=== PATIENT | male | born 1955 | race Caucasian/White ===

== ENCOUNTER 2023-12-14 10:58 | Outpatient (CLI) | payer MEDICARE, SELFPAY | END 2023-12-14 10:59 | disposition home or self-care (01) | PROVIDERS: PCP Surgery; Visit Provider Orthopaedic Surgery Sports Medicine | DX: Z01.83 Encounter for blood typing (principal) | CPT/HCPCS: 36415; 86850; 86900; 86901 ==

== ENCOUNTER 2023-12-16 05:59 | Day surgery (SDC) | payer MEDICARE, SELFPAY ==
[2023-12-16] VITALS (31 sets, daily range): BP systolic 103–178; BP diastolic 51–124; PULSE 48–90; RESP 12–16; TEMP 36.1–37.3; O2SAT 93–99; BMI 35.3
[2023-12-16] MEDS: LACTATED RINGERS 1000 ML 1,000 ML 100 ML IV ×2 (05:55→08:16)
[2023-12-16] MEDS: ACETAMINOPHEN 500 MG TABLET 1000 MG PO (06:45)
[2023-12-16] MEDS: OXYCODONE (CR) 10 MG TAB.ER.12H PO (06:45)
[2023-12-16] MEDS: MIDAZOLAM HCL 1 MG/ML inj IVP (07:01)
[2023-12-16] MEDS: fentaNYL 100 MCG/2 ML inj IVP (07:01)
[2023-12-16] MEDS: SODIUM CHLORIDE 0.9 % (FLUSH) 10 ML SYRINGE IVF (07:08)
--- NOTE | 2023-12-16 07:12 | SUR.PREOP ---
TIME?OUT:?0700 PT/RN/MDA?VERIFICATION?OF?SURGICAL?SITE Right Hip,?PROCEDURE Nerve block,?AND?CONSENT OBTAINED?PRIOR?TO?INVASIVE?PROCEDURE.
--- NOTE | 2023-12-16 07:15 | XR_ITS ---
Patient: JULIETTE MARTIN Facility:?[facility] Patient ID:?[id number] Site Patient ID:?[id number]. Site :?[id number] Study:?XRay-Hip Right 1V-12/16/2023 9:23:21 AM Ordering Physician:?DR. REYES Final Report: Indication: Hip replacement surgery Technique: AP hip fluoroscopic image. Fluoroscopy time 53.0 seconds. Findings/Impression: Hardware from a right total hip arthroplasty is in satisfactory position. Dictated by Raleigh Kohler MD @ 12/16/2023 9:25:21 AM Signed by:?Raleigh Kohler MD @12/16/2023 9:25:21 AM (Electronic Signature)
[2023-12-16] MEDS: CEFAZOLIN 2 GM in 0.9 % SODIUM CHLORIDE Mini-bag 100 ML IVPB ×2 (07:21→20:05)
[2023-12-16] MEDS: TRANEXAMIC ACID 100 MG/ML INJ 1000 MG IV (07:27)
--- NOTE | 2023-12-16 09:20 | W.PM.H&PU ---
History & Physical Update History & Physical Update H&P Reviewed and patient assessed: No changes noted
--- NOTE | 2023-12-16 09:21 | PM.ORPRC ---
Procedure Note Date of procedure: 12/16/23 Procedure: PREOPERATIVE DIAGNOSIS: 1. Right hip osteoarthritis, severe, primary POSTOPERATIVE DIAGNOSIS: 1. Right hip osteoarthritis, severe, primary PROCEDURE: 1. Right total hip arthroplasty-anterior approach 2. 12681 - intraoperative fluoroscopy up to 1 hour. SURGEON: Roberto Paris MD. CRISIS MANAGER: Gopal Gomez PA-C; Natty Abbott PA-C - Of note, a skilled speech language pathology assistant was critical for this case to aid in patient positioning, tissue retraction, limb manipulation/positioning, and closure. ANESTHESIA: General endotracheal anesthetic EBL: 500 mL IMPLANTS: DePuy J&J uncemented total hip [place] cup size 52, hole eliminator, +4 neutral liner Actis stem, standard offset, size 9 +5 mm ceramic 36 mm head COMPLICATIONS: None evident INDICATIONS: The patient is a pleasant 68-year-old male who has experienced severe right hip pain and difficulty bearing weight. Workup included x-rays which revealed severe osteoarthrosis in the hip. Given the deformity, the dysfunction, and the pain, as well as the failure of nonoperative management, recommendation was made for surgery. FINDINGS: Full-thickness chondral loss diffusely throughout the femoral head and acetabulum. Large osteophytes around the acetabulum in particular. Moderate effusion upon entering the joint. DESCRIPTION OF PROCEDURE: Following a thorough discussion of risks, benefits, and alternatives consent was obtained and the right hip was marked. The patient was brought to the operating room and placed supine on the operating table. Induction of anesthesia was undertaken. 2 g IV Ancef and 1 g tranexamic acid was administered within 1 hr of incision preoperatively. Proper time-out was performed identifying proper patient, site, procedure. The operative extremity was prepped and draped in the appropriate sterile fashion using ChloraPrep after the patient was positioned on the Maxwell table with head in neutral alignment and all bony prominences well padded. C-arm fluoroscopic imaging was utilized to confirm proper pelvis rotation and position, and to get true AP films of both the contralateral left, and the affected right hip. This is for comparison. A longitudinal incision was made starting approximately 1 cm distal to the ASIS, and 3-4 cm lateral. The incision was extended distally aiming toward the lateral border the patella. Sharp incision through skin and bovie cautery through the subcutaneous tissue allowed identification of the TFL fascia. This was sharply divided, and the fascia bluntly released from the muscle fibers as we dissected medial. Upon coming to the medial border, we were able to retract the TFL laterally, and penetrated the deeper fascia and identify the crossing circumflex vessels. These were ligated/cauterized. The rectus was elevated from the capsule, and retractors placed laterally and medially along the femoral neck to help with visualization of the capsule. We then performed an inverted T capsulotomy. The capsule was tagged for later repair. Retractors were placed inside the capsule. The femoral neck was visualized after releasing medially down to the lesser trochanter, along the saddle laterally, and up onto the acetabulum. The femoral neck cut was made in line with our preoperative templating. The head was removed in a single piece, and sized. We turned our attention to acetabular preparation. Initially, the labrum was resected from around the perimeter, the pulvinar was excised, allowing us to visualize the false wall. We started the reaming with a 43 mm reamer. This was medialized down to the true wall. We then enlarged our reamers sequentially up to one size less than the selected cup size. We trialed at the same size and found it to have an excellent fit. The selected cup was then opened, inserted, and impacted in line with the goal of 40? of abduction, and 20-25? of anteversion. This was confirmed on C-arm fluoroscopic imaging to be in the appropriate/goal position. Once the cup was placed we placed a hole eliminator and a liner consistent with preop planning. Attention was turned to the femoral preparation. The limb was extended, externally rotated, and adducted. The posteromedial capsule was released, as retractors were placed allowing excellent access to the proximal femur. Initially a jukebox operator was followed by canal finder followed by various broaches. We broached sequentially up to the size noted above, found it to have excellent rotational control, and trialing various heads and necks, revealed that appropriate neck offset, and the above noted head size provided the greatest stability, and pentecostal of length, and offset. C-arm fluoroscopic imaging confirmed position of the stem, as well as leg lengths, which were compared with the pre procedure all fluoroscopic images. Trial implants were removed, the real femoral stem inserted, as was the appropriate head. After reducing, the leg was placed through range of motion and stability was confirmed anterior, posterior, and lateral. A 3 min Betadine soak was then performed, and thorough irrigation with normal saline followed. Closure of the capsule was performed with #1 PDS. Bleeding was confirmed to be controlled at this stage, and the TFL fascia was closed with #0 strata fix. Subcutaneous, and subcuticular closure was performed with 2-0 Vicryl and 4-0 Monocryl, respectively. Dressings were applied, and the patient was awoken from anesthesia and transferred the PACU in stable condition. A skilled speech language pathology assistant was critical for this case to aid in patient positioning, tissue retraction, acetabular and proximal femoral exposure, limb manipulation/positioning, dislocation/relocation, patient safety, and closure. PLAN: 1. Weight bear as tolerated operative extremity. 2. 23 hr perioperative antibiotics. 3. Ice. 4. PT/OT consults for ambulation assistance/mobility education. 5. Social work consult for discharge planning. 6. DVT prophylaxis with at SCDs, Dhaval Hose, and Xarelto x5 days followed by aspirin for a total of 1 month..
--- NOTE | 2023-12-16 09:58 | P.NB_ITS ---
Nerve Block Nerve Block Time Seen by Provider: 07:09 Date Seen: 12/16/23 Type of block requested by surgeon for post-operative analgesia: BRE/LFCN Side: right Time out performed: Yes Verification of patient name: Yes Verification of date of : Yes Site marking: site marked Name of person performing procedure: Ja Continuous monitoring Was continuous monitoring of O2 sat, B/P, monitoring analyst, recorded every 15 minutes?: Yes Procedure Checklist: sterile prep, needles and gloves Ultrasound guided. Images saved: Yes Medications given in 5ml increments after negative aspiration: Ropivicaine %: 0.5 mL: 30 Needle gauge: 20 Decadron (mg): 10 Precedex (mcg): 25 Patient tolerated procedure well: Yes Additional comments: Needle noted below psoas tendon needle noted adjacent to LFCN Block Charges Block Charge (with Pro Fee): Other Periph Nerve Block Use of Ultrasound Machine for Block: Yes- US Guidance/pain block
--- NOTE | 2023-12-16 09:59 | W.ANESCHARGE ---
Anesthesia Charges Start Date/Time Anesthesia Start Date: 12/16/23 Anesthesia Start Time: 07:15 Stop Date/Time Anesthesia Stop Date: 12/16/23 Anesthesia Stop Time: 10:00
--- NOTE | 2023-12-16 09:59 | W.ANESCHARGE ---
Anesthesia Charges Start Date/Time Anesthesia Start Date: 12/30/23 Anesthesia Start Time: 07:15 Stop Date/Time Anesthesia Stop Date: 12/16/23 Anesthesia Stop Time: 10:00
[2023-12-16] MEDS: hydrOXYzine pamoate 25 MG CAPSULE PO (10:01)
[2023-12-16] MEDS: fentaNYL 100 MCG/2 ML inj 50 MCG IVP ×2 (10:05→10:13)
[2023-12-16] MEDS: HYDROmorphone 0.5 mg/0.5 ml inj IVP ×2 (10:07→10:19)
--- NOTE | 2023-12-16 10:08 | XR_ITS ---
Patient: JULIETTE MARTIN Facility:?[facility] Patient ID:?[id number] Site Patient ID:?[id number]. Site :?06/18/1965 Study:?XRay-Hip Right 1V-12/16/2023 10:44:29 AM Ordering Physician:?DR. REYES Final Report: Indication: Postop Technique: AP hip centered pelvis and lateral view right hip Findings/Impression: Hardware from a right total hip arthroplasty is in satisfactory position. Bone alignment is normal. No sign of acute fracture. Postop changes are within normal limits. Dictated by Raleigh Kohler MD @ 12/16/2023 10:49:30 AM Signed by:?Raleigh Kohler MD @12/16/2023 10:49:30 AM (Electronic Signature)
[2023-12-16] MEDS: OxyCODONE/APAP 5-325 TABLET PO (10:59)
[2023-12-16] MEDS: LACTATED RINGERS 1000 ML 1,000 ML 75 ML IV ×2 (11:12→18:35)
--- NOTE | 2023-12-16 13:23 | SUR.PHASEII ---
1257: pt points to 6-7 on FACES scale. Ice pack on, tolerating water and jello. Denies nausea. 2L oxygen via NC on. Pt does de sats on oxygen to 87-88 percent while sleeping. MDA updated. Awaiting PT/OT evaluation.
--- NOTE | 2023-12-16 14:04 | SUR.PHASEII ---
1348: Pt sitting on side of bed. OT here. Pt pale, states he feels dizzy and lightheaded and nauseated. Sipping on Sprite. OT didn't clear pt to go home today. Dr. Paris notified. Awaiting orders to transfer pt to Med/Surg.
--- NOTE | 2023-12-16 15:18 | P.IMCN_ITS ---
Date of Consult Patient: [place] Patient Consult date: 12/16/23 Requesting Physician: Orthopedics Primary Care Provider: Gopal Hall MD Consult Narrative Reason for consult: post op nausea and vomiting Narrative: Ashish Robertson is a 68 year old male who underwent an elective right total hip arthroplasty today by Dr. Cruz for severe osteoarthritis. This was supposed to be a same-day procedure, however, postoperatively he had profound nausea for which he is brought to the hospital for an overnight stay. He's already feeling much better. Review of Systems Status of ROS: Reports: 6 or more systems reviewed and unremarkable except as noted in History and below PFSH [facility] Medical History (Updated 12/16/23 @ 15:42 by Nasima Hernandez MD) Elevated PSA ?R97.20 - Elevated prostate specific antigen [PSA] (ICD-10) Sensorineural hearing loss (SNHL) of left ear ?H90.5 - Unspecified sensorineural hearing loss (ICD-10) Hx of colonic polyp ?Z86.010 - Personal history of colonic polyps (ICD-10) Elevated cholesterol ?E78.00 - Pure hypercholesterolemia, unspecified (ICD-10) Hypertension ?I10 - Essential (primary) hypertension (ICD-10) Calculus of right ureter ?N20.1 - Calculus of ureter (ICD-10) Surgical History (Updated 12/16/23 @ 15:42 by Nasima Hernandez MD) S/P total right hip arthroplasty ?Z96.641 - Presence of right artificial hip joint (ICD-10) History of cataract surgery ?Z98.49 - Cataract extraction status, unspecified eye (ICD-10) Family History (Updated 12/16/23 @ 15:37 by Nasima Hernandez MD) Mother Stroke Father Parkinsonism Myocardial infarction Sister Diabetes Graves disease Social History (Updated 12/16/23 @ 16:27 by Nasima Hernandez MD) Narrative: to Violeta, who is here with him today. 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 Smoked 4.5 pack years, quit in 1981, no smokeless tobacco. Drinks 2 glasses of wine per week. Smoking Status: Never smoker How often do you have a drink containing alcohol: monthly or less How many standard drinks containing alcohol do you have on a typical day: 3 or 4 AUDIT-C Alcohol total score: 2 Non-prescribed substance use: denies use Caffeine: Yes Meds Home Medications and Allergies Home Medications Medication Instructions Recorded Confirmed Type celecoxib 200 mg capsule 200 mg PO DAILY 11/24/23 12/14/23 History lisinopril 40 mg tablet 20 mg PO BID 11/24/23 12/16/23 History rosuvastatin 5 mg tablet 5 mg PO DAILY 11/24/23 12/14/23 History zinc gluconate 10 mg lozenges 10 mg PO Q3H PRN 12/14/23 12/14/23 History Allergies Allergy/AdvReac Type Severity Reaction Status Date / Time iodine Allergy Intermediate Verified 12/16/23 06:15 adhesive Allergy Rash Verified 12/16/23 06:15 chlorthalidone Allergy tinnitus Verified 12/16/23 06:15 rosuvastatin [From Crestor] Allergy Rash Verified 12/16/23 06:15 Exam Narrative: Exam Narrative: General: No acute distress. Awake alert oriented x3. Obese. HEENT: Normocephalic atraumatic, pupils equally round and reactive to light and accommodation. Oropharynx clear. Mucous membranes are dry. No cervical lymphadenopathy, thyromegaly or carotid bruits. No JVD. Cardiovascular: Regular rate and rhythm. No murmurs, gallops, or rubs. Chest: No increased work of breathing. Clear to auscultation bilaterally. No crackles or wheezes. Abdomen: Bowel sounds hypoactive. Soft, nondistended, nontender. No hepatosplenomegaly or masses. Extremities: Right hip bandage is clean, dry, and intact. No edema, no cyanosis or clubbing. Skin: No jaundice, no pallor, no rashes. Const: Vital Signs, click to edit/add: Vital Signs - 24 hr 12/16/23 06:20 12/16/23 07:00 12/16/23 07:05 Temperature 99.1 F Pulse Rate 68 60 58 L Pulse Rate [Pulse Oximeter] Respiratory Rate 16 16 16 Blood Pressure 143/90 H 178/96 H 137/81 Blood Pressure [Le ft Arm] Pulse Oximetry 97 99 99 Oxygen Delivery Me thod Room Air Nasal Cannula Nasal Cannula Oxygen Flow Rate 2 2 12/16/23 07:14 12/16/23 09:55 12/16/23 10:00 Temperature 97.1 F L Pulse Rate 56 L 90 72 Pulse Rate [Pulse Oximeter] Respiratory Rate 16 14 15 Blood Pressure 144/84 H 109/90 H 103/61 Blood Pressure [Le ft Arm] Pulse Oximetry 99 95 93 Oxygen Delivery Me thod Nasal Cannula Room Air Oxygen Flow Rate 2 12/16/23 10:05 12/16/23 10:10 12/16/23 10:15 Temperature Pulse Rate 70 63 65 Pulse Rate [Pulse Oximeter] Respiratory Rate 14 12 12 Blood Pressure 148/124 H 117/70 123/76 Blood Pressure [Le ft Arm] Pulse Oximetry 93 96 94 Oxygen Delivery Me thod Nasal Cannula Oxygen Flow Rate 2 12/16/23 10:20 12/16/23 10:25 12/16/23 10:30 Temperature 97.6 F Pulse Rate 73 61 76 Pulse Rate [Pulse Oximeter] Respiratory Rate 12 12 12 Blood Pressure 125/79 120/73 133/77 Blood Pressure [Le ft Arm] Pulse Oximetry 98 93 99 Oxygen Delivery Me thod Oxygen Flow Rate 12/16/23 10:35 12/16/23 10:41 12/16/23 11:00 Temperature 97.6 F 97.6 F Pulse Rate 75 74 66 Pulse Rate [Pulse Oximeter] Respiratory Rate 12 16 16 Blood Pressure 124/80 137/69 115/76 Blood Pressure [Le ft Arm] Pulse Oximetry 99 95 97 Oxygen Delivery Me thod Nasal Cannula Nasal Cannula Nasal Cannula Oxygen Flow Rate 2 2 2 12/16/23 11:15 12/16/23 11:30 12/16/23 11:45 Temperature Pulse Rate 51 L 48 L 63 Pulse Rate [Pulse Oximeter] Respiratory Rate 16 16 16 Blood Pressure 150/102 H 141/83 H 126/72 Blood Pressure [Le ft Arm] Pulse Oximetry 97 98 98 Oxygen Delivery Me thod Nasal Cannula Nasal Cannula Nasal Cannula Oxygen Flow Rate 2 2 2 12/16/23 12:00 12/16/23 12:30 12/16/23 13:00 Temperature Pulse Rate 68 55 L 53 L Pulse Rate [Pulse Oximeter] Respiratory Rate 16 16 16 Blood Pressure 132/89 116/51 L 138/72 Blood Pressure [Le ft Arm] Pulse Oximetry 99 99 98 Oxygen Delivery Me thod Nasal Cannula Nasal Cannula Nasal Cannula Oxygen Flow Rate 2 2 2 12/16/23 13:30 12/16/23 14:38 12/16/23 14:40 Temperature 97.0 F L Pulse Rate 58 L Pulse Rate [Pulse Oximeter] 65 Respiratory Rate 16 16 Blood Pressure 148/80 H Blood Pressure [Le ft Arm] 141/82 H Pulse Oximetry 96 99 99 Oxygen Delivery Me thod Room Air Room Air Room Air Oxygen Flow Rate 12/16/23 14:42 Temperature 97.0 F L Pulse Rate Pulse Rate [Pulse Oximeter] 65 Respiratory Rate 16 Blood Pressure Blood Pressure [Le ft Arm] 141/82 H Pulse Oximetry 99 Oxygen Delivery Me thod Room Air Oxygen Flow Rate 2 Assessment and Plan Assessment and plan (1) S/P total right hip arthroplasty: Status: Acute (2) Osteoarthritis of right hip: Problem comment: Extreme Status: Acute (3) Post-operative nausea and vomiting: Status: Acute Plan sAhish Robertson is a 68 year old male who underwent an elective right total hip arthroplasty today by Dr. Cruz for severe osteoarthritis. He had postoperative nausea which is much improved now. For the last few weeks he had been using ibuprofen for pain and switch to Celebrex 10 days ago. I will start him on omeprazole as that may be helpful. Continue antiemetics as well. VTE prophylaxis with Xarelto for 5 days then twice a day aspirin. Continue lisinopril and rosuvastatin.
[2023-12-16] MEDS: OMEPRAZOLE 20 MG CAPSULE DR PO (17:23)
--- NOTE | 2023-12-16 18:28 | PC.NURSE ---
End of shift. pt has been pleasant. he was admitted from [facility] to med/surg @ 1430. pain was 5/10. he was not nausated but had emesis bag in his hand. he fell asleep and when he awoke he felt better. pain was better and he was able to eat. hip dressing is C.D.I and active ice is on. IV is patent. teds and plexi are on.
[2023-12-16] MEDS: lisinopriL 20 MG TABLET PO (20:42)
[2023-12-16] MEDS: SENNOSIDES 1 TAB TABLET 2 TAB PO (20:42)
[2023-12-16] MEDS: OXYCODONE 5 MG TABLET PO (23:26)
[2023-12-16] MEDS: ACETAMINOPHEN 325 MG TABLET 1000 MG PO (23:27)
[2023-12-17] MEDS: CEFAZOLIN 2 GM in 0.9 % SODIUM CHLORIDE Mini-bag 100 ML IVPB (03:43)
[2023-12-17] MEDS: OXYCODONE 5 MG TABLET PO ×3 (03:50→12:01)
[2023-12-17 03:54] VITALS: BP 138/57; PULSE 66; RESP 16; TEMP 37.3; O2SAT 99
[2023-12-17 06:21] LABS: Hemoglobin* 11.5 gm/dL (13.5-17.5); Lymphocytes Percent Auto 6.4 % (20-44); Mean Corpuscular HGB Conc 34 gm/dL (32-36); Mean Corpuscular Hemoglobin 31 pg (26-34); Mean Corpuscular Volume 90 fL (80-100); Monocytes Percent Auto 10.4 % (0.0-11.0); Neutrophils Percent Auto 82.2 % (42.0-72.0); Platelet Count* 219 K/uL (140-440); Red Blood Count 3.77 m/uL (4.30-5.90); White Blood Count* 17.62 K/uL (4.50-11.00)
[2023-12-17] MEDS: OMEPRAZOLE 20 MG CAPSULE DR PO (06:23)
[2023-12-17 06:25] LABS: Slide Review Reflex No
[2023-12-17 06:36] LABS: Chloride* 104 mmol/L (96-114); Potassium* 4.4 mmol/L (3.6-5.1); Sodium* 137 mmol/L (135-149)
[2023-12-17 06:39] LABS: Anion Gap 7 mEq/L (7-15); Blood Urea Nitrogen* 18 mg/dL (7-30); Carbon Dioxide* 26 mmol/L (20-32); Creatinine* 0.9 mg/dL (0.5-1.5); Est. Creatinine Clearance* 75.03; Estimated Glomerular Filt Rate 94 ml/min; Glucose* 128 mg/dL (60-115)
[2023-12-17 06:40] LABS: Calcium* 9.2 mg/dL (8.4-10.6)
--- NOTE | 2023-12-17 07:17 | PC.NURSE ---
End of shift note [id number]: Pt alert & oriented x 4 and able to make needs known. Dressing to R hip noted to be C/D/I and CMS to RLE intact. PRN Oxycodone and Tylenol given for 4/10 pain to RLE. Pt performing IS well with 2,500 result achieved. IV to L hand patent and SL as pt is tolerating po fluids and ate 50% for supper last evening per day shift RN report. Pt able to reposition independently in bed. Pt voided 1000 mL from [id number] though then reported to RN that he felt he was having difficulty voiding and did not feel like he had emptied bladder when asked. Agency Sales Development Associate then performed bladder scan and noted PVR of 549. Agency Sales Development Associate then spoke with pt about performing straight cath to empty bladder if he was unable to void on his own. Pt refused to have straight catheterization performed. Agency Sales Development Associate did educate pt regarding risk of UTI if unable to empty bladder. Pt was then able to void 625 mL on his own by using urinal. He has since been denying bladder pressure when asked and has been voiding well using urinal as he has voided 2325 mL of urine throughout the shift. Pt has refused to get out of bed when encouraged this shift and requested to use urinal in bed for toileting. Pt denying nausea and dizziness when asked this morning and reports he feels much better compared to yesterday. Bilateral TEDs and plexi pulses worn. ?
--- NOTE | 2023-12-17 07:23 | PC.NURSE ---
MD Cruz's provider note states patient to take Xarelto postoperatively though no order currently in place for this. Day shift cereal chemist aware and will ensure order given for this.
[2023-12-17 07:53] VITALS: BP 98/40; PULSE 74; RESP 18; TEMP 37.1; O2SAT 98
[2023-12-17 08:44] VITALS: BP 123/75
[2023-12-17] MEDS: SENNOSIDES 1 TAB TABLET 2 TAB PO (08:45)
[2023-12-17] MEDS: ROSUVASTATIN CALCIUM 10 MG TABLET 5 MG PO (08:45)
[2023-12-17] MEDS: RIVAROXABAN 10 MG TABLET PO (08:45)
--- NOTE | 2023-12-17 15:19 | PM.ORPN ---
Subjective Subjective Date Seen: 12/17/23 Principal diagnosis: Status postop day 1, right total hip arthroplasty - anterior approach Interval history: Patient reports doing well. No acute events over night. Some mild nausea that has since resolved. Slight progressing his diet. Urinating on his own. Pain managed with scheduled and PRN medications, ice. DVT prophylaxis: Rivaroxaban, Knee-high bilateral Dhaval stockings, SCDs, walking. Denies fevers, chills, aches, N/V, CP, SOB/SEN, or lightheadedness. Ortho Exam Narrative Exam Narrative: -Patient appears comfortable in recliner; no apparent acute distress. present -Alert and oriented times 3 -Operative hip swollen; soft tissues supple; no obvious erythema. No ecchymosis Warmth appropriate. No rash, or allergic reaction to the adhesive bands. -Surgical dressing clean, dry, intact; no obvious drainage, no erythematous streaking peripheral to the bandage -Bilateral calves soft and supple; no significant swelling, edema, tenderness, erythema, discoloration, warmth, or palpable cords -2+ DP/PT pulses, intact dermatomes and myotomes distally (5/5 strength). Noted numbness about the lateral femoral cutaneous nerve distribution. Const Vital Signs, click to edit/add: Vital Signs - 24 hr 12/16/23 16:00 12/16/23 17:00 12/16/23 20:00 Temperature 97.4 F L 97.5 F L 98.2 F Pulse Rate [Pulse Oximeter] 72 70 72 Respiratory Rate 16 16 16 Blood Pressure [Left Arm] 149/100 H 138/96 H 143/88 H Blood Pressure [Right Arm] Pulse Oximetry 96 95 98 Oxygen Delivery Method Room Air Room Air Room Air Oxygen Flow Rate 2 12/16/23 23:00 12/16/23 23:24 12/17/23 03:54 Temperature 98.9 F 99.1 F Pulse Rate [Pulse Oximeter] 70 70 66 Respiratory Rate 16 16 16 Blood Pressure [Left Arm] Blood Pressure [Right Arm] 118/72 138/57 L Pulse Oximetry 98 99 Oxygen Delivery Method Room Air Room Air Oxygen Flow Rate 4 12/17/23 07:53 12/17/23 07:53 12/17/23 08:44 Temperature 98.7 F Pulse Rate [Pulse Oximeter] 74 Respiratory Rate 18 18 Blood Pressure [Left Arm] Blood Pressure [Right Arm] 98/40 L 123/75 Pulse Oximetry 98 98 Oxygen Delivery Method Room Air Room Air Oxygen Flow Rate Assessment and Plan Assessment and plan (1) S/P total right hip arthroplasty: Problem details: Dr. Paris, 12/16/2023 Status: Acute (2) Osteoarthritis of right hip: Problem details: Extreme Status: Acute (3) Post-operative nausea and vomiting: Problem details: Resolved 12/17/2023 Status: Acute Plan - Complete 23 hour perioperative antibiotics. - PT/OT consult for education and assistance. - Social work consult for discharge planning - Prescribed analgesics as needed - DVT prophylaxis: Rivaroxaban, bilateral knee high Dhaval Hose stockings and SCDs - Anticipation is for discharge to home with spouse 12/17/2023 if the patient remains medically stable, pain is controlled, and they are safe with mobilization.
== END 2023-12-17 12:12 | disposition home or self-care (01) ==
LOC: OR 07:08 → MEDSURG 14:48
PROVIDERS: Physician Assistant Surgical; PCP Surgery; Visit Provider Orthopaedic Surgery Sports Medicine
PROC: (CPT 27130; principal; 2023-12-16 07:15)
DX: M16.11 Unilateral primary osteoarthritis, right hip (principal); G89.18 Other acute postprocedural pain; R11.2 Nausea with vomiting, unspecified; F17.200 Nicotine dependence, unspecified, uncomplicated; I10 Essential (primary) hypertension
CPT/HCPCS: 27130; 01214; 36415; 64450; 73501; 76000; 76942; 80048; 85025; 86850; 86900; 86901; 97110; 97116; 97161; 97165; 97530; 97535; A9270; C1776; J0330; J0690; J1100; J1170; J2250; J2371; J2405; J2704; J2710; J2795; J3010; J7120

== ENCOUNTER 2024-01-19 09:30 | Outpatient (RCR) | payer MEDICARE, SELFPAY ==
--- NOTE | 2023-12-10 11:00 | PT.OPEX ---
PT [facility] Outpatient Eval PT [facility] Outpatient Eval Start: 12/10/23 09:21 Freq: Status: Active Protocol: Document 12/10/23 09:27 REMINGTON (Rec: 12/10/23 09:34 REMINGTON [id number]) E-signed By Stefanie Chauhan DPT Physical Therapy Outpatient Evaluation Insurance Information Recert Due Date 03/09/24 Insurance Name Medicare B,[employer] Medical Diagnosis R hip OA s/p R AMY 12/16/23 Treating Diagnosis R hip pain, impaired R hip ROM , impaired R hip/LE mobility/ strength, limping/antalgic gait Subjective Subjective Patient c/o bilateral hip pain , R>L, leading to R AMY scheduled for 12/16/23. Patient reports chronic pain issues with R hip for the last 5 years. Pain, limping with walking have progressively gotten worse. Pain rated 6-7/ 10. He is using pain meds as needed but with minimal relief . Scheduled for R AMY now and thinks he may need L AMY in the near future. He is not using an AD. Patient/spouse reports one step to enter home coming in from the garage. Once inside, patient can stay on the main level. Spouse is available to assist as needed at home. Patient was able to borrow a 4ww to use after surgery, has a cane to use as needed as well. States plan is d/c home same day as surgery unless over night is needed. Date of Last Physician Visit 11/24/23 Date of Surgery (If applicable) 12/16/23 Current Work Status Retired Precautions Treatment Precautions/Contraindications HTN, OA, latex allergy Assessment Assessment/Impression Patient is a 68 year old male with R hip pain, impaired R hip ROM, impaired R hip/LE mobility/strength, limping/ antalgic gait. Patient seen in PT today for pre-op session to provide education/ information on upcoming AMY surgery, safety information/HO , equipment instruction including use of FWW, and instruction in AMY exercises. Handouts issued for exercises , patient to perform them leading up to surgery. Reviewed PT/OT plan after surgery and patient is scheduled for OP PT post op. Patient/spouse reports one step to enter the home from the garage. Once inside, patient can stay on the main level. Spouse is available to assist as needed. Tub shower on the main level. Walk in shower downstairs. Patient has a raised seat to place over the toilet, shower chair, 4ww, cane to use after surgery. Patient would benefit from skilled PT for pain/sx management, improved hip ROM, improved hip/LE mobility/strength, improved gait, balance/proprioception training, and establishment of HEP. Plan of Care Rehabilitation Potential Good Physical Therapy Goals 1. Patient will be educated in AMY pre/post-op safety, mobility, and exercises with HOs provided within one visit with patient returning to PT for post op treatment after R AMY surgery on 12/16/23. PT goals will be updated to AMY rehab goals when patient returns post op. Coordination/Communication With Referral Source Treatment Plan/Direct Interventions Gait Training,Manual Therapy, Therapeutic Exercises Frequency/Duration 1x/week Patient Will Be Discharged From Therapy Completion of LTG(s),Skills Plateau,Independent w/HEP, Independently Progressing Evaluation Billing Untimed Code Treatment Minutes 35 Complexity Moderate Certification Information Initial Certification Date 12/10/23 Ending Certification Date 03/09/24 Provider Signature Shows Agreement With POC & Medical Necessity Physician Signature & Date Requested Please Sign/Date Here Physician Comment/Change : Physician NPI Number #
== END 2024-05-18 23:59 | disposition home or self-care (01) ==
PROVIDERS: PCP Surgery; Visit Provider Orthopaedic Surgery Sports Medicine
DX: M16.11 Unilateral primary osteoarthritis, right hip (principal); Z96.641 Presence of right artificial hip joint; M25.551 Pain in right hip; Z74.09 Other reduced mobility; R29.898 Other symptoms and signs involving the musculoskeletal system; R26.89 Other abnormalities of gait and mobility; Z51.89 Encounter for other specified aftercare
CPT/HCPCS: 97110; 97162; 97164